=== PATIENT | male | born 1940 | race Caucasian/White ===

== ENCOUNTER 2016-12-13 02:19 | Inpatient (IN) | payer OTHER, MEDICARE ==
[~2016-12-13] VITALS: Ht 175.3 cm; Wt 81.6 kg
[~2016-12-13 02:19] MED LIST: ALBUTEROL2.5 MG/3 M INH/SOL; ALLOPURINOL100 MG PO; ATORVASTATIN CA40 MG PO; CARVEDILOL3.125 MG PO; CITALOPRAM20 MG PO; COLACE100 MG PO; COUMADIN 2 MG TA2 MG PO; MELATONIN5 M7 PO; MIRALAX17 GM PO; PREDNISONE 20MG20 MG PO; PRINIVIL 5MG5 MG PO; ROBITUSSIN W/CO10 ML PO; TESSALON PERLE100 MG PO
--- NOTE | 2016-12-13 02:26 | ED DYSPNEA/ASTHMA COMPLAINT ---
History of Present Illness General Chief Complaint: Dyspnea (COPD, CHF, Other) Stated Complaint: DIFF BREATHING Source: patient, family, old records, EMS Exam Limitations: no limitations Vital Signs & Intake/Output Vital Signs & Intake/Output Vital Signs Date Time Temp Pulse Resp B/P B/P Pulse O2 O2 Flow FiO2 Mean Ox Delivery Rate 12/13 0248 Nasal 2.0L Cannula 12/13 0236 91 Nasal 2.0L Cannula 12/13 0231 95.7 70 16 169/84 91 Nasal 2.0L Cannula Allergies Coded Allergies: NO KNOWN ALLERGIES (06/28/14) NKDA PER ANTIBIOTIC ORDER SHEET - SJS Reconcile Medications Albuterol Sulfate (Proventil) 2.5 MG/3 ML NEB 3 ML INH Q4P PRN SHORTNESS OF BREATH (Reported) Allopurinol 100 MG TAB 2 TAB PO DAILY KINDEY STONES (Reported) Atorvastatin Calcium (Lipitor) 40 MG TABLET 1 TAB PO DAILY CHOLESTEROL ( Reported) Docusate Sodium (Colace) 100 MG CAPSULE 1 CAP PO BID CONSTIPATION (Reported) Lisinopril 2.5 MG TABLET 1 TAB PO DAILY HTN (Reported) Melatonin 5 MG TABLET 1 TAB PO QPM SLEEP (Reported) Metoprolol Succinate 25 MG TAB 1 TAB PO DAILY HEART (Reported) Warfarin Sodium 4 MG TABLET 1 TAB PO DAILY BLOOD THINNER (Reported) Triage Nurses Notes Reviewed? yes HPI: Patient has had a runny nose and nasal congestion for the past 3 days. Yesterday he developed a productive cough. There've been no fevers or chills. No chest pain or chest tightness. No orthopnea. No nausea or vomiting. His has been giving him a nebulizer. Tonight he began to have difficulty breathing. 911 was contacted. Patient is currently feeling better and more relaxed. He still has the productive cough but he denies any difficulty breathing. There is no orthopnea. 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 Past History Travel History Traveled to [place] past 21 day No Medical History Any Pertinent Medical History? 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 Hx Contributory? No Review of Systems Review of Systems Constitutional: Reports: no symptoms. EENTM: Reports: no symptoms. Respiratory: Reports: see HPI, cough, short of breath. Cardiovascular: Reports: no symptoms. GI: Reports: no symptoms. Genitourinary: Reports: no symptoms. Musculoskeletal: Reports: no symptoms. Skin: Reports: no symptoms. Neurological/Psychological: Reports: no symptoms. Hematologic/Endocrine: Reports: no symptoms. Immunologic/Allergic: Reports: no symptoms. All Other Systems: Reviewed and Negative Physical Exam Physical Exam General Appearance: well developed/nourished, alert, awake, anxious, mild distress Head: atraumatic, normal appearance Eyes: Bilateral: PERRL, EOMI. Ears, Nose, Throat: normal pharynx, normal ENT inspection, hearing grossly normal Neck: normal inspection, supple, full range of motion, NO JVD Respiratory: rhonchi (SCATTERED), GOOD AIR ENTRY Cardiovascular: regular rate/rhythm, normal peripheral pulses Gastrointestinal: normal bowel sounds, soft, non-tender Extremities: pedal edema (L>R) Neurologic/Psych: awake, alert, oriented x 3 Skin: intact, normal color, warm/dry Lymphatic: no anterior cervical catarina Core Measures ACS in differential dx? No Severe Sepsis Present: No Septic Shock Present: No Progress Differential Diagnosis: bronchitis, CHF, COPD, pulmonary embolism, pneumonia Plan of Care: Orders Procedure Date/time Status Admit to inpatient 12/13 0426 Active PARTIAL THROMBOPLASTIN TIME 12/13 0233 Complete PROTHROMBIN TIME 12/13 0233 Complete Telemetry/Wood Shingle Roofer 12/13 224 Active BLOOD CULTURE 12/13 224 Active TROPONIN LEVEL 12/13 224 Complete COMPREHENSIVE METABOLIC PANEL 12/13 224 Complete CBC WITHOUT DIFFERENTIAL 12/13 224 Complete EKG 12/13 224 Active Current Medications Sig/Rao Start time Last Medication Dose Stop Time Status Admin Azithromycin 500 MG ONCE ONE 12/13 429 UNVr (Zithromax) 12/13 528 Sodium Chloride 250 ML (Normal Saline 0.9%) Ceftriaxone Sodium 1,000 MG ONCE ONE 12/13 429 UNVr (Rocephin) 12/13 430 Laboratory Tests 12/13/16239: Anion Gap 12, Estimated GFR 59 L, BUN/Creatinine Ratio 17.5, Glucose 129 H, Calcium 9.4, Total Bilirubin 2.1 H, AST 26, ALT 20 L, Alkaline Phosphatase 61, Troponin I < 0.01, Total Protein 7.8, Albumin 4.3, Globulin 3.5, Albumin/ Globulin Ratio 1.2, PT 31.7 H, INR 3.05 H, APTT 41 H, CBC w Diff MAN DIFF ORDERED, RBC 4.68 L, MCV 94.4 H, MCH 30.3, RDW 17.0 H, MPV 10.5 H, Gran % 84.4 H, Lymphocytes % 7.6 L, Monocytes % 5.6, Eosinophils % 1.8, Basophils % 0.6, Absolute Granulocytes 14.6 H, Segmented Neutrophils 85 H, Band Neutrophils 1, Absolute Lymphocytes 1.3, Lymphocytes 9 L, Monocytes 5, Absolute Monocytes 1.0 H, Absolute Eosinophils 0.3, Absolute Basophils 0.1, Platelet Estimate ADEQUATE, Hypochromic-Microcytic 1+, Poikilocytosis 1+, Target Cells RARE, Ovalocytes 1+, Stomatocytes FEW, PUBS MCHC 32.0 L, Fld Total RBCs Counted 100 Microbiology 12/13 249 BLOOD: Blood Culture - RECD 12/14 239 BLOOD: Blood Culture - RECD Diagnostic Imaging: Viewed by Me: Radiology Read. Discussed w/RAD: Radiology Read. CXR Impression: PATIENT: JEANNETTE SANABRIA PRESENT AGE: 76 PATIENT ACCOUNT NO: [id number] : [id number] LOCATION: [facility] ORDERING PHYSICIAN: TIKI RUIZ MD SERVICE DATE: 12/13/16 EXAM TYPE: RAD - XRY-PORTABLE CHEST XRAY EXAMINATION: XR PORTABLE CHEST CLINICAL INFORMATION: Productive cough COMPARISON: 05/20/2016 TECHNIQUE: Portable frontal view of the chest was obtained. FINDINGS: Pacemaker/AICD lead tips appear in unchanged position. Sternal wires and prosthetic mitral valve are noted. Lung volumes are symmetric. Patchy left basilar opacity is suspected. No definite right lung consolidation. No evidence of pneumothorax, significant pleural effusion, or overt pulmonary edema. The cardiac silhouette remains enlarged. No acute osseous findings are seen. IMPRESSION: Suspect patchy left basilar opacity ; this may be better assessed with PA and lateral radiographs. Enlarged cardiac silhouette. DICTATED BY: HUONG CHAPIN MD DATE/TIME DICTATED:12/13/16343 HAUNTED HISTORY TOUR GUIDE:MARIIA DATE/TIME TRANSCRIBED:12/13/16343 CONFIDENTIAL, DO NOT COPY WITHOUT APPROPRIATE AUTHORIZATION. <Electronically signed in Other Vendor System> SIGNED BY: HUONG CHAPIN MD 12/13/16348 Initial ED EKG: pacemaker rhythm Prior EKG: unchanged Rhythm Strip: PACED Departure Departure Disposition: STILL A PATIENT Condition: Guarded Clinical Impression Primary Impression: Pneumonia Qualifiers: Pneumonia type: due to unspecified organism Laterality: left Lung location: lower lobe of lung Qualified Code: J18.1 - Lobar pneumonia, unspecified organism Referrals: KLEVER CHESTER,TIKI Dorsey (PCP/Family) Departure Forms: Customer Survey General Discharge Information Admission Note Spoke With: NATALIE HAMPTON MD Documentation of Exam: Documentation of any treatments & extenuating circumstances including Concerns Regarding Discharge (functional status, medication knowledge or non-compliance, living conditions, etc.) that warrant an admission rather than observation: [IV ABX, NEBS, PULM CONSULT, ANTICIPATE BEING IN HOSPITAL FOR MORE THAN 2 DAYS] Critical Care Note Critical Care Note Critical Care Time: non-applicable
--- NOTE | 2016-12-13 02:35 | NUR ---
EKG DONE AND SHOWN TO DR. RUIZ.
--- NOTE | 2016-12-13 02:36 | NUR ---
PT BIBA FROM HOME C/O SOB. PT ARRIVES WITH SOB, NO ACUTE DISTRESS NOTED, PTS 02 ON RA 89%. PT PLACED ON 2L NC 02 91%. PT HAS LEFT SIDED PARALYSIS FROM STROKE IN 2010. PT HAS PACER ON LEFT SIDED CHEST WALL. PT ON ARRIVAL HAS A PRODTUCTIE COUGH WITH YELLOW COLORED FLEM AND SOME VOMITT. PT IS INCONTINENT. AT BEDSIDE. DR RUIZ AT BEDSIDE FOR EVAL
--- NOTE | 2016-12-13 02:36 | NUR ---
PT HAS PREHOSPITAL IV PLACED #20 RH.
[2016-12-13] MEDS ORDERED: METOPROLOL SUCC25 M1 PO (02:42)
[2016-12-13] MEDS ORDERED: LISINOPRIL2.5 M1 PO (02:42)
[2016-12-13] MEDS ORDERED: WARFARIN SODIUM4 M1 PO (02:44)
[2016-12-13] MEDS ORDERED: COLACE100 M1 PO (02:46)
--- NOTE | 2016-12-13 02:46 | NUR ---
RT AT BEDSIDE FOR TREATMENT, BEDSIDE XRAY
[2016-12-13 03:03] LABS: ABSOLUTE BASOPHIL COUNT 0.1 /CUMM (0.0-0.2); ABSOLUTE EOSINOPHIL COUNT 0.3 /CUMM (0.0-0.7); ABSOLUTE GRANULOCYTE CT 14.6 /CUMM (1.4-6.5); ABSOLUTE LYMPH COUNT 1.3 /CUMM (1.2-3.4); BASOPHIL % 0.6 % (0.0-2.0); EOSINOPHIL % 1.8 % (0-5); GRANULOCYTE % 84.4 % (42.2-75.2); HEMATOCRIT 44.2 % (42-52); MEAN CORPUSCULAR HGB 30.3 PG (27.0-31.0); MEAN CORPUSCULAR VOLUME 94.4 FL (80.0-94.0); MEAN PLATELET VOLUME 10.5 FL (7.4-10.4); PLATELET COUNT 113 /CUMM (130-400); RED BLOOD CELL CT 4.68 /CUMM (4.70-6.10); WHITE BLOOD CELL COUNT 17.2 /CUMM (4.8-10.8)
[2016-12-13 03:11] LABS: PT 31.7 SEC (9.4-12.5); PTT 41 SEC (25-37)
--- NOTE | 2016-12-13 03:49 | RADIOLOGY REPORT ---
EXAMINATION: XR PORTABLE CHEST CLINICAL INFORMATION: Productive cough COMPARISON: 05/20/2016 TECHNIQUE: Portable frontal view of the chest was obtained. FINDINGS: Pacemaker/AICD lead tips appear in unchanged position. Sternal wires and prosthetic mitral valve are noted. Lung volumes are symmetric. Patchy left basilar opacity is suspected. No definite right lung consolidation. No evidence of pneumothorax, significant pleural effusion, or overt pulmonary edema. The cardiac silhouette remains enlarged. No acute osseous findings are seen. IMPRESSION: Suspect patchy left basilar opacity; this may be better assessed with PA and lateral radiographs. Enlarged cardiac silhouette.
--- NOTE | 2016-12-13 04:48 | History & Physical ---
SELENA CHESTER,[facility] 12/13/16 0448: General Information and HPI MD Statement: I have seen and personally examined JEANNETTE SANABRIA SR and documented this H& P. The patient is a 76 year old M who presented with a patient stated chief complaint of [productive cough, shortness of breath]. Source of Information: patient, family, old records Exam Limitations: no limitations History of Present Illness: Mr. Sanabria is 76 year old male with past medical history significant for stroke with left-sided hemiplegia in 2010 status post craniotomy and cranioplasty, gout, hypertension, atrial fibrillation on Coumadin and pacemaker, rheumatic heart disease with mitral stenosis status post mitral valvuloplasty 1989, status post CABG, status post pace maker presented to ED with chief complain of productive cough and shortness of breath. Most of the history was obtained from patient's , she reported that 2 days ago patient started to have productive cough of clear sputum, denied blood. Yesterday patient started to have nasal congestion, and later shortness of breath. Patient doesn't have history of COPD/asthma however he has been getting albuterol twice a day daily that was prescribed to him after one of his hospitalization. Patient denied any fever, chills, chest pain, headache, sore throat, ear pain, abdominal pain, nausea or vomiting. Patient is not on any specific diet, no clear history of choking. After the stroke patient had trouble swallowing and was on modified diet that progressively was upgraded to be on regular diet. 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 Psychosocial History Who Do You Live With? spouse Services at Home: Occupational Therapy, Physical Therapy Primary Language: Martiniquais ETOH Use: denies use Illicit Drug Use: denies illicit drug use Functional Ability ADLs Needs Assist: dressing, eating, toileting, bathing. Ambulation: non-ambulatory IADLs Independent: telephone. Needs Assist: transportation, medication admin. Review of Systems Review of Systems Constitutional: Reports: see HPI. Exam & Diagnostic Data Last 24 Hrs of Vital Signs/I&O Vital Signs Date Time Temp Pulse Resp B/P B/P Pulse O2 O2 Flow FiO2 Mean Ox Delivery Rate 12/13 0601 Nasal 2.0L Cannula 12/13 0522 98.4 70 20 127/64 97 Nasal 2.0L Cannula 12/13 0248 Nasal 2.0L Cannula 12/13 0236 91 Nasal 2.0L Cannula 12/13 0231 95.7 70 16 169/84 91 Nasal 2.0L Cannula Intake & Output 12/13 0800 12/13 0000 12/12 1600 Intake Total 50 Output Total Balance 50 Intake, IV 50 Patient 81.647 kg Weight Weight Reported by Patient Measurement Method Physical Exam General Appearance Alert, Oriented X3, Cooperative, No Acute Distress Skin No Rashes, No Breakdown, No Significant Lesion Skin Temp/Moisture Exam: Warm/Dry HEENT Atraumatic, PERRLA, EOMI, Mucous Membr. moist/pink Neck Supple Lymphatic no cervical lymphadenopathy Cardiovascular Normal S1, Normal S2, No Murmurs, irregular Lungs Diffuse ronchi Abdomen Normal Bowel Sounds, Soft, No Tenderness, No Hepatospenomegaly, No Masses Neurological left hemiplagia right 5/5 motor, sensory intact Extremities No Clubbing, No Cyanosis, Normal Pulses, No Tenderness/Swelling, left +1 pedal edema right trace pedal edema Assessment/Plan Assessment: Mr. Sanabria is 76 year old male with past medical history significant for stroke with left-sided hemiplegia in 2010 status post craniotomy and cranioplasty, gout, hypertension, atrial fibrillation on Coumadin and pacemaker, rheumatic heart disease with mitral stenosis status post mitral valvuloplasty 1989, status post CABG, status post pace maker presented to ED with chief complain of productive cough and shortness of breath. On admission Vital signs temperature 95.7, pulse 70, blood pressure 169/84, respiratory rate 16 saturating 91% on 2 L oxygen, saturating 89% on room air Labs WBC 17.2, H&H 14.2/44.2, platelet 113, sodium 137, potassium 4.3, BUN/ creatinine 21/1.2, glucose 129, INR 3.05 Chest x-ray IMPRESSION: Suspect patchy left basilar opacity; this may be better assessed with PA and lateral radiographs. Enlarged cardiac silhouette. Problem list #Community acquired pneumonia/aspiration pneumonia #Acute hypoxic respiratory failure #Atrial fibrillation on Coumadin supratherapeutic INR #Gout Plan -Admit to general medical floor -Azithromycin, ceftriaxone -Sputum culture, urine culture and blood culture -Oxygen supplementation, maintain saturation above 92% -TRC -Gentle IV hydration -Nothing by mouth follow evaluation -Hold Coumadin for subtherapeutic INR -Repeat INR in a.m. and dose Coumadin accordingly -Continue lisinopril, atorvastatin -Continue allopurinol -Diet nothing by mouth -Code DNI As Ranked By This Provider Problem List: 1. Pneumonia Qualifiers Pneumonia type: due to unspecified organism Laterality: left Lung location: lower lobe of lung Qualified Code: J18.1 - Lobar pneumonia, unspecified organism 2. Atrial fibrillation Core Measures/Miscellaneous Acute Coronary Syndrome ACS Diagnosis: No Cerebrovascular Accident CVA/TIA Diagnosis: No Congestive Heart Failure CHF Diagnosis: No VTE (View Protocol) VTE Risk Factors: Age > 40 No [facility] VTE prophylaxis d/t: No contraindications No VTE Pharm Prophylaxis d/t: No contraindications VTE Diagnosis: No VTE Type: NONE VTE Confirmed by (Test): NONE Sepsis (View Protocol) Severe Sepsis Present: No Septic Shock Septic Shock Present: No Miscellaneous Documentation Attending Case Discussed With: NATALIE HAMPTON MD Primary Care Physician: TIKI ERNST MD Patient sees these Specialists Cardiology Level of Patient Care: General Medicine SUSANA YU MD 12/13/16 3245: General Information and HPI Allergies/Medications Home Med list Albuterol Sulfate (Proventil) 2.5 MG/3 ML NEB 3 ML INH Q4P PRN SHORTNESS OF BREATH (Reported) Allopurinol 100 MG TABLET 2 TAB PO DAILY kidney stones Atorvastatin Calcium 40 MG TABLET 1 TAB PO DAILY cholesterol Docusate Sodium (Colace) 100 MG CAPSULE 1 CAP PO BID CONSTIPATION (Reported) Lisinopril 2.5 MG TABLET 1 TAB PO DAILY HTN (Reported) Melatonin 5 MG TABLET 1 TAB PO QPM SLEEP (Reported) Metoprolol Tartrate 25 MG TABLET 1 TAB PO BID heart rate Tramadol HCl 50 MG TABLET 1 TAB PO Q6P PRN PAIN SCALE 7-10 (SEVERE) (Reported ) Warfarin Sodium 4 MG TABLET 1 TAB PO DAILY BLOOD THINNER (Reported) Resident Review Statement Resident Statement: examined this patient, discussed with internet programmer, agreed with internet programmer Other Findings: 76 year old male with past medical history significant for stroke with left- sided hemiplegia in 2011 status post craniotomy and then cranioplasty, gout, hypertension, A. fib on coumadin, bovine mitral valve replacement, status post CABG, status post pace maker with IVC in situ presents with 1 day history of progressive shortness of breath and productive cough. Patient's provides most of the history. She reports that the cough is productive of whitish sputum, not blood tinged. No hx of choking on foods. Pt was congested all night with shortness of breath but oxygen saturation checked at home was 97% on RA. Patient denies chest pain, fever or chills, N/V or D. There is no sick contact or recent travel. His gave him robitussin DM and neb treatments without improvements. Patient is a former smoker but quit many years ago but denies a pulmonary disease history and says patient has never been diagnosed with any chronic lung condition. He does not use O2 at home. He has visiting nurses and aides, and he is an assist of 2 at baseline and ambulates only with a wheelchair. In the ER he was found to desaturate to 87 on RA and is currently on 2L. CXR-Suspect patchy left basilar opacity; this may be better assessed with PA and lateral radiographs. Enlarged cardiac silhouette. Assessment 1. Acute Hypoxic Respiratory failure 2. Community Acquired PNA r/o possible aspiration pneumonia 3. Atrial Fibrillation 4. HTN 5. Hx of Stroke with left sided hemiplegia Plan Admit to GM Start IV ceftriaxone and azithromycin Give supplemental O2 as needed TRC/Nebs Obtain Blood Cultures x 2 Sputum Culture Strep pneumo and Legionella Ag Mucinex BID Check a swallow Eval Repeat labs in AM Daily INR check and dose coumadin as needed Resume his impt home medications Keep NPO for now Pain mgt pathway ordered Pt is DNI Warfarin for DVT ppx-INR is supratherapeutic BERTA CHESTER, [facility] 12/13/16 0537: Attending MD Review Statement Attending Statement Attending MD Statement: examined this patient, discuss w/resident/PA/PATHOLOGIST ASSISTANT, agreed w/resident/PA/PATHOLOGIST ASSISTANT, discussed with family Attending Assessment/Plan: 76 yo M with h/o stroke with residual left hemiplegia (2010) s/p craniotomy and then cranioplasty, HTN, rheumatic mitral stenosis s/p mitral valvuloplasty (1989 ) then bioprosthetic valve replacement and 1-vessel bypass (2004), Afib s/p AV braydon ablation and PPM (1993), systolic CHF now with biventricular AICD (2008), is here with 3-day h/o rhinorrhea, nasal congestion, cough productive of white phlegm with worsening dyspnea. No fever or chills. No sick contacts. His reports that he has no difficulty swallowing or aspiration with meals. Vitals: afebrile, BP 127/64, HR 70's, sats 89% RA --> 97% on 2L. Exam: AAO, in mild respiratory distress, dry mucous membranes, no pharyngeal erythema, able to speak a few words without difficulty, Chest b/l rhonchi (L>R), Left sided hemiparesis with contracture to left foot. Labs: WBC 17.2, band 1, INR 3.05, BUN 21, trop neg, CXR: patchy left basilar opacity. EKG: Paced. Echo (2016): EF 50% . 1. Acute hypoxic respiratory failure, community acquired pneumonia, although aspiration pneumonia/ pneumonitis cannot be ruled out. GM admit, TRC nebs, sputum culture, urine legionella and strep antigen, IV ceftriaxone and azithromycin, NPO, obtain swallow eval. Gentle IV fluids. Keep O2 sats > 92%. Mucinex BID. 2. Supratherapeutic INR. Hold coumadin today, recheck INR tomorrow and dose coumadin. Continue all cardiac meds. DVT ppx supratherapeutic INR on coumadin. DNI (patient has a living will, is the POA).
--- NOTE | 2016-12-13 04:55 | NUR ---
PT IS GOING TO 210-2
--- NOTE | 2016-12-13 04:57 | NUR ---
PT MEDICATED WITH 1G ROCPEHIN IV AND 500MG ZITHRO IV PER EMAR.
--- NOTE | 2016-12-13 05:03 | NUR ---
REPORT GIVEN TO RONN REEVES.
--- NOTE | 2016-12-13 05:20 | Admission Certification ---
Admission Certification Certification Statement - As attending physician, I certify that at the time of - admission, based on clinical presentation, severity of - symptoms, need for further diagnostic testing and - therapeutic interventions, and risk of adverse outcomes - without in-hospital treatment, in my clinical assessment, - this patient requires an acute hospital stay for a minimum - of two nights or longer. I have also considered psychsocial - factors such as support system, advanced age, financial - issues, cognitive issues, and failed out-patient treatments, - past re-admission history, safety of patient, and lack of - compliance as applicable. Specific rationale supporting this admission is: Acute hypoxic respiratory failure, community acquired pneumonia.
[2016-12-13] MEDS ORDERED: ATORVASTATIN CA40 M1 PO (05:34)
[2016-12-13] MEDS ORDERED: ALLOPURINOL100 M1 PO ×2 (05:34→06:20)
[2016-12-13] MEDS ORDERED: METOPROLOL TART25 M1 PO (05:37)
[2016-12-13] MEDS ORDERED: TRAMADOL HCL50 M1 PO (05:38)
--- NOTE | 2016-12-13 06:23 | NUR ---
ADMISSION NOTE: PT ARRIVED TO FLOOR VIA STRETCHER ACCOMPANIED BY ER STAFF AND . PT A&0X3, 2L NC, PRODUCTIVE COUGH NOTED, LUNGS RHONCUS, DENIED PAIN, HX STROKE 2010 LEFT SIDE EFFECTED, PT INC, GONZALO CARE PROVIDED, PT COCCYX RED/BLANCHABLE- BARRIER CREAM APPLIED, BED ALARM ON, ALPS ON, TWO IVS- FIRST IV #20 RFA PRE-HOSPITAL, SECOND IV #20 RFA 12/13/16 STARTED IN ER, IVF STARTED NS 50ML/HR, CALL LIGHT PLACED WITHIN REACH, PT ORIENTATED TO ROOM 210-2, FALL RISK BRACLET ON, RED SOCKS ON , SIGN ON DOOR. PT SETTLED IN AND RESTING AT THIS TIME.
[2016-12-13 06:30] VITALS: BP 124/65
--- NOTE | 2016-12-13 09:18 | PN- Housestaff ---
LEON FISHER 12/13/16 0917: Subjective Follow-up For: Pneumonia most likely aspiration Supratherapeutic INR Subjective: This morning patient is alert and awake but slightly confused. He is on 2 L of oxygen via nasal cannula. He denies any cough, chest pain or breathing difficulty. He denies difficulty swallowing or choking with food. Review of Systems Constitutional: Reports: see HPI. Objective Last 24 Hrs of Vital Signs/I&O Vital Signs Date Time Temp Pulse Resp B/P B/P Pulse O2 O2 Flow FiO2 Mean Ox Delivery Rate 12/13 1020 Nasal Cannula 12/13 0927 96 Nasal 2.0L Cannula 12/13 0800 96 Nasal 2.0L Cannula 12/13 0630 99.6 70 20 124/65 97 Nasal 2.0L Cannula 12/13 0601 Nasal 2.0L Cannula 12/13 0522 98.4 70 20 127/64 97 Nasal 2.0L Cannula 12/13 0248 Nasal 2.0L Cannula 12/13 0236 91 Nasal 2.0L Cannula 12/13 0231 95.7 70 16 169/84 91 Nasal 2.0L Cannula Intake & Output 12/13 1600 12/13 0800 12/13 0000 Intake Total 50 Output Total Balance 50 Intake, IV 50 Patient 180 lb Weight Weight Reported by Patient Measurement Method Physical Exam General Appearance: Alert, No Acute Distress Neck: Supple Cardiovascular: Regular Rate, systolic murmur Lungs: decreased air entry bilaterally Abdomen: Normal Bowel Sounds, Soft, No Tenderness Neurological: residual left-sided weakness Extremities: No Edema Current Medications: Current Medications Sig/Rao Start time Last Medication Dose Route Stop Time Status Admin Acetaminophen 650 MG Q6-PRN PRN 12/13 0600 AC PO Albuterol Sulfate 3 ML BID 12/13 1000 AC 12/13 INH 0921 Albuterol Sulfate 3 ML ONCE ONE 12/13 0245 DC 12/13 INH 12/13 0246 0234 Allopurinol 200 MG DAILY 12/13 1000 AC PO Allopurinol 200 MG DAILY 12/13 1000 CAN PO Atorvastatin Calcium 40 MG 1700 12/13 1700 AC PO Azithromycin 500 MG Q24H 12/14 1000 AC Sodium Chloride 250 ML IV Azithromycin 500 MG ONCE ONE 12/13 0430 DC 12/13 Sodium Chloride 250 ML IV 12/13 0529 0502 Azithromycin 500 MG Q24H 12/13 0430 DC Sodium Chloride 250 ML IV Ceftriaxone Sodium 1,000 MG DAILY 12/14 1000 AC IV Ceftriaxone Sodium 0 .STK-MED ONE 12/13 0445 DC .ROUTE Ceftriaxone Sodium 1,000 MG ONCE ONE 12/13 0430 DC 12/13 IV 12/13 0431 0502 Guaifenesin 600 MG Q12 12/13 1000 AC PO Hydromorphone HCl 0.6 MG Q6-PRN PRN 12/13 0600 AC IV Lisinopril 2.5 MG DAILY 12/13 1000 AC PO Melatonin 5 MG QPM 12/13 2200 AC PO Sodium Chloride 1,000 ML .Q20H 12/13 0430 AC 12/13 IV 06 Tramadol HCl 50 MG Q6P PRN 12/13 0600 AC PO Last 24 Hrs of Lab/Derek Results Last 24 Hrs of Labs/Mics: Laboratory Tests 12/13/16 0240: Anion Gap 12, Estimated GFR 59 L, BUN/Creatinine Ratio 17.5, Glucose 129 H, Calcium 9.4, Total Bilirubin 2.1 H, AST 26, ALT 20 L, Alkaline Phosphatase 61, Troponin I < 0.01, Total Protein 7.8, Albumin 4.3, Globulin 3.5, Albumin/ Globulin Ratio 1.2, PT 31.7 H, INR 3.05 H, APTT 41 H, CBC w Diff MAN DIFF ORDERED, RBC 4.68 L, MCV 94.4 H, MCH 30.3, RDW 17.0 H, MPV 10.5 H, Gran % 84.4 H, Lymphocytes % 7.6 L, Monocytes % 5.6, Eosinophils % 1.8, Basophils % 0.6, Absolute Granulocytes 14.6 H, Segmented Neutrophils 85 H, Band Neutrophils 1, Absolute Lymphocytes 1.3, Lymphocytes 9 L, Monocytes 5, Absolute Monocytes 1.0 H, Absolute Eosinophils 0.3, Absolute Basophils 0.1, Platelet Estimate ADEQUATE, Hypochromic-Microcytic 1+, Poikilocytosis 1+, Target Cells RARE, Ovalocytes 1+, Stomatocytes FEW, PUBS MCHC 32.0 L, Fld Total RBCs Counted 100 Microbiology 12/14 527 URINE ROUT: Legionella Antigen - COLB 12/14 527 URINE ROUT: Streptococcus pneumoniae Antigen (M - COLB 12/14 527 LOWER RESP: Respiratory Culture - COLB 12/14 527 LOWER RESP: Gram Stain - COLB 12/13 0250 BLOOD: Blood Culture - RECD 12/13 0240 BLOOD: Blood Culture - RECD Assessment/Plan Assessment: 76 year old Man with PMH of stroke with residual left hemiplegia (2010) s/p craniotomy and then cranioplasty, HTN, rheumatic mitral stenosis s/p mitral valvuloplasty (1989) then bioprosthetic valve replacement and 1-vessel bypass ( 2004), Afib s/p AV braydon ablation and PPM (1993), systolic CHF now with biventricular AICD (2008). Problem list 1. Acute hypoxic respiratory failure most likely secondary to aspiration pneumonia. Patient is afebrile. Her WBC count is 17.2. Patient is on 2 L of oxygen via nasal cannula. Chest x-ray showing patchy left basilar opacity. 2. Supratherapeutic INR. INR this morning is 3.05 3. Failed bedside swallow evaluation. MBS orderd PLAN * Monitor vitals every shift * Continue IV ceftriaxone and azithromycin * Follow-up blood and sputum cultures * Followed urinary Legionella antigen and strep edema * Continue Mucinex * Continue TRC nebs * Continue gentle IV fluids * Continue holding Coumadin. Check INR tomorrow morning and dose Coumadin accordingly * Patient also failed modified MBS * Swallow evaluation again tomorrow * Family discussion about goals of care * DVT prophylaxis * DNI Problem List: 1. Pneumonia Pain Ratin Pain Location: none Pain Goal: Pain 4 or less Pain Plan: tylenol Tomorrow's Labs & Rationales: cbc, inr DVT/Prophylaxis: pharmacological ASHLEY FLORES 12/13/16 1005: Attending MD Review Statement Attending Statement Attending MD Statement: examined this patient, discuss w/resident/PA/CIVIL DESIGNER, agreed w/resident/PA/CIVIL DESIGNER, discussed with family, reviewed EMR data (avail), discussed with nursing, discussed with case mgmt, reviewed images, amended to note Attending Assessment/Plan: "76 yo M with h/o stroke with residual left hemiplegia (2010) s/p craniotomy and then cranioplasty, HTN, rheumatic mitral stenosis s/p mitral valvuloplasty (1989 ) then bioprosthetic valve replacement and 1-vessel bypass (2004), Afib s/p AV braydon ablation and PPM (1993), systolic CHF now with biventricular AICD (2008), is here with 3-day h/o rhinorrhea, nasal congestion, cough productive of white phlegm with worsening dyspnea. No fever or chills. No sick contacts. His reports that he has no difficulty swallowing or aspiration with meals. " ASSESSMENT 1. Acute hypoxic respiratory failure, 2. community acquired pneumonia, although aspiration pneumonia/ pneumonitis cannot be ruled out. 2. Supratherapeutic INR. PLAN GM admit, TRC nebs, f/u blood culture, sputum culture, F/U urine legionella and strep antigen, IV ceftriaxone and azithromycin, NPO, obtain swallow eval. Gentle IV fluids. Keep O2 sats > 92%. Mucinex BID. Hold coumadin, recheck INR tomorrow and dose coumadin. Continue all cardiac meds. DVT ppx supratherapeutic INR on coumadin. DNI (patient has a living will, is the POA).
[2016-12-13 14:14] VITALS: BP 110/59
--- NOTE | 2016-12-13 14:47 | NUR ---
NURSING NOTE: AIR MATTRESS ORDERED FOR PATIENT BUT HIS REFUSED IT. MICROBIOLOGY TECHNICIAN IS NOTIFIED.
--- NOTE | 2016-12-13 16:01 | RADIOLOGY REPORT ---
EXAMINATION: XR MODIFIED BARIUM SWALLOW CLINICAL INFORMATION: Aspiration. Patient admitted with pneumonia. COMPARISON: None. TECHNIQUE: A modified barium swallow was performed with speech pathologist in attendance. Pur?e consistency was given to the patient and the swallowing mechanism was observed fluoroscopically with several spot films taken. FLUOROSCOPY TIME: 1 minute 10 seconds. FINDINGS: With puree consistency, the oral phase of swallowing is normal. There is, however, significant pooling of contrast seen within the vallecula, which lead to delayed silent penetration of contrast. No significant pooling of contrast is noted in the piriform sinuses. IMPRESSION: Large volume pooling of contrast within the vallecula with secondary delayed silent penetration seen. Speech pathologist assessment issued separately.
--- NOTE | 2016-12-13 17:43 | Event Note ---
Event Note Event Note: S: Called by nurse who said the of the patient was concerned about evening medications. B: Patient normally takes Warfarin (4mg daily) and metoprolol 25 mg BID. A/R: Based on the supratherapeutic INR 3.05 explained that we will hold off on the warfarin this evening. Blood pressure was 110/59 heart rate is well controlled on beta ema was held. Patient's is eager for diet to be advanced and looks forward to clearance after MBS in a.m. Resident was made aware. INR will be checked in the morning.
[2016-12-13 22:38] VITALS: BP 141/94
[2016-12-14 07:07] VITALS: BP 120/62
[2016-12-14 07:47] LABS: ABSOLUTE BASOPHIL COUNT 0 /CUMM (0.0-0.2); ABSOLUTE EOSINOPHIL COUNT 0.3 /CUMM (0.0-0.7); ABSOLUTE GRANULOCYTE CT 4.3 /CUMM (1.4-6.5); ABSOLUTE MONOCYTE COUNT 0.7 /CUMM (0.10-0.60); BASOPHIL % 0.6 % (0.0-2.0); EOSINOPHIL % 4.2 % (0-5); MEAN CORPUSCULAR HGB 30.4 PG (27.0-31.0); MEAN CORPUSCULAR HGB CONC 32.8 G/DL (33.0-37.0); MEAN CORPUSCULAR VOLUME 92.7 FL (80.0-94.0); MEAN PLATELET VOLUME 11.2 FL (7.4-10.4); PLATELET COUNT 92 /CUMM (130-400); RBC DISTRIBUTION WIDTH 17.6 % (11.5-14.5); RED BLOOD CELL CT 4.02 /CUMM (4.70-6.10)
[2016-12-14 08:18] LABS: PT 30.8 SEC (9.4-12.5); PTT 41 SEC (25-37)
[2016-12-14 08:23] LABS: WHITE BLOOD CELL COUNT 6.3 /CUMM (4.8-10.8)
[2016-12-14 08:24] LABS: HEMATOCRIT 37.2 % (42-52)
--- NOTE | 2016-12-14 10:07 | PN- Housestaff ---
LEON FISHER 12/14/16 1007: Subjective Follow-up For: Aspiration pneumonia Subjective: This morning patient is feeling little improvement. He is still coughing and bringing up greenish phlegm. Denies any chest pain or discomfort. Review of Systems Constitutional: Reports: see HPI. Objective Last 24 Hrs of Vital Signs/I&O Vital Signs Date Time Temp Pulse Resp B/P B/P Pulse O2 O2 Flow FiO2 Mean Ox Delivery Rate 12/14 1357 98.8 69 20 142/80 98 Nasal Cannula 12/14 0822 97 Nasal 1.0L Cannula 12/14 0800 94 Nasal 2.0L Cannula 12/14 0707 97.4 70 20 120/62 96 Nasal Cannula 12/14 0000 Nasal 2.0L Cannula 12/13 2238 98.1 70 20 141/94 97 Nasal 2.0L Cannula 12/13 2000 95 Nasal 2.0L Cannula Intake & Output 12/14 1600 12/14 0800 12/14 0000 Intake Total 600 600 Output Total Balance 600 600 Intake, IV 600 600 Physical Exam General Appearance: Alert, Oriented X3, Cooperative, No Acute Distress Cardiovascular: Regular Rate Lungs: decreased air entry bilaterally Abdomen: Normal Bowel Sounds, Soft, No Tenderness Neurological: residual left-sided weakness, left facial droop Extremities: trace edema bilaterally Current Medications: Current Medications Sig/Rao Start time Last Medication Dose Route Stop Time Status Admin Acetaminophen 650 MG Q6-PRN PRN 12/13 0600 AC PO Albuterol Sulfate 3 ML BID 12/13 1000 AC 12/14 INH 0809 Allopurinol 200 MG DAILY 12/13 1000 AC PO Atorvastatin Calcium 40 MG 1700 12/13 1700 AC PO Azithromycin 500 MG Q24H 12/14 1000 AC 12/14 Sodium Chloride 250 ML IV 0956 Ceftriaxone Sodium 1,000 MG DAILY 12/14 1000 AC 12/14 IV 0956 Dextrose/Sodium 1,000 ML Q13H 12/13 1530 AC 12/14 Chloride IV 0525 Guaifenesin 600 MG Q12 12/13 1000 AC PO Hydromorphone HCl 0.6 MG Q6-PRN PRN 12/13 0600 AC IV Lisinopril 2.5 MG DAILY 12/13 1000 AC PO Melatonin 5 MG QPM 12/13 2200 AC PO Metoprolol Tartrate 25 MG BID 12/14 1026 AC PO Sodium Chloride 1,000 ML .Q20H 12/13 0430 DC 12/13 IV 0622 Tramadol HCl 50 MG Q6P PRN 12/13 0600 AC PO Warfarin Sodium 4 MG COUMADIN 1700 ONE 12/14 1700 AC PO 12/14 1701 Last 24 Hrs of Lab/Derek Results Last 24 Hrs of Labs/Mics: Laboratory Tests 12/14/16 0650: Anion Gap 8, Estimated GFR > 60, BUN/Creatinine Ratio 19.1, PT 30.8 H, INR 2.97 H, APTT 41 H, CBC w Diff NO MAN DIFF REQ, RBC 4.02 L, MCV 92.7, MCH 30.4, RDW 17.6 H, MPV 11.2 H, Gran % 68.0, Lymphocytes % 16.2 L, Monocytes % 11.0 H, Eosinophils % 4.2, Basophils % 0.6, Absolute Granulocytes 4.3, Absolute Lymphocytes 1.0 L, Absolute Monocytes 0.7 H, Absolute Eosinophils 0.3, Absolute Basophils 0, PUBS MCHC 32.8 L Assessment/Plan Assessment: 76 year old Man with PMH of stroke with residual left hemiplegia (2010) s/p craniotomy and then cranioplasty, HTN, rheumatic mitral stenosis s/p mitral valvuloplasty (1989) then bioprosthetic valve replacement and 1-vessel bypass ( 2004), Afib s/p AV braydon ablation and PPM (1993), systolic CHF now with biventricular AICD (2008). Problem list 1. Acute hypoxic respiratory failure most likely secondary to aspiration pneumonia. Patient is afebrile. Her WBC count is 6.3. Patient is on 1 L of oxygen via nasal cannula. 2. Supratherapeutic INR on admission. INR this morning is 2.97 3. Failed bedside swallow evaluation and MBS. High risk of aspiration 4. Thrombocytopenia. Platelet count 92. No active bleeding PLAN * Monitor vitals every shift * Continue IV ceftriaxone and azithromycin * Continue Mucinex * Continue TRC nebs * Dose Coumadin [address] Mcdonald * Check INR tomorrow morning and dose Coumadin accordingly * Swallow evaluation again tomorrow * Family discussion about goals of care today. Speech therapist Dianne spoke with patient and his earlier this morning and told her about risk of aspiration. actually fed him applesauce last night even though patient was nothing by mouth. Me and Dr. Mcdonald also discussed with the but she is in denial and she is not much convinced because she thinks that patient has been eating perfectly fine at home. Later on she admitted that he might have some difficulty with thin liquids and chokes some time. She was given options for NG tube and PEG tube but patient and his both are refusing. Both completely understand the risk of starting diet and okay with that. They were told that continues aspiration can lead to recurrent pneumonia, multiple hospitalization and eventual . They understand the risks and want us to start the diet. wants to see him comfortable. Options of comfort care and hospice were also discussed with her but she is not ready for that. * Regular chopped diet with honey thick liquid * DVT prophylaxis * DNR/DNI Problem List: 1. Pneumonia Pain Ratin Pain Location: none Pain Goal: Pain 4 or less Pain Plan: tylenol Tomorrow's Labs & Rationales: none DVT/Prophylaxis: pharmacological ASHLEY MCDONALD 12/14/16 1025: Attending MD Review Statement Attending Statement Attending MD Statement: examined this patient, discuss w/resident/PA/HEAD BAGGAGE PORTER, agreed w/resident/PA/HEAD BAGGAGE PORTER, discussed with family, reviewed EMR data (avail), discussed with nursing, discussed with case mgmt, reviewed images, amended to note Attending Assessment/Plan: ASSESSMENT 1. Acute hypoxic respiratory failure, 2. aspiration pneumonia 2. Supratherapeutic INR. 4. Failed speech/swallow, MBS 5. h/o stroke 6. h/o afib on coumadin PLAN failed MBS, on abx, repeat chest xray in am, oxygen supplementation. restart coumadin, recheck INR tomorrow and dose coumadin. Continue all cardiac meds. If failed swallow eval, nutrition, goals of care with family. (discuss about PEG ) Patient and his spoke at length about future goals of care, patient/ both understands risks/benefits of PO feeds with aspiration leading to pneumonia and . Patient decided to continue with oral feeds as per speech/swallow. DVT ppx therapeutic INR on coumadin. DNI (patient has a living will, is the POA).
--- NOTE | 2016-12-14 13:03 | NUR ---
SPEECH THERAPY: CONTACTED AND MET TO DISCUSS RESULTS OF MBS COMPLETED 12/12. PT'S REPORTS THAT PT HAS NO DIFFICULTY SWALLOWING SOLIDS AT HOME, OCCASIONAL COUGHING WITH THIN LIQUIDS. SHE BELIEVES HE HAS A HEAD COLD AND DOES NOT BELIEVE THIS IS A CHRONIC PROBLEM. AT HOME, PT USES ACAPELLA IF CONGESTION INCREASES AND SHE REPORTS THIS "LOOSENS EVERYTHING UP AND HE COUGHS IT OUT." SHE IS CLEAR THAT PT DOES NOT WANT A FEEDING TUBE AND THAT PT "WOULD RATHER THAN HAVE A TUBE." DISCUSSED RISKS OF ASPIRATION AND ASPIRATION-RELATED INFECTION AT LENGTH WELL STRATEGIES TO MAXIMIZE SWALLOW SAFETY. REPORTS SHE INTENDS TO TAKE HIM HOME AND WILL CONTINUE TO FEED HIM. D/W RN AND T/C PLACED TO MD TO DISCUSS.
[2016-12-14 13:57] VITALS: BP 142/80
[2016-12-14 22:26] VITALS: BP 112/68
[2016-12-15 06:27] VITALS: BP 118/72
[2016-12-15 08:32] LABS: PT 25.2 SEC (9.4-12.5)
--- NOTE | 2016-12-15 10:03 | PN- Housestaff ---
LEON FISHER 12/15/16 1003: Subjective Follow-up For: Aspiration pneumonia Subjective: Patient is feeling improved. He denies any chest pain or discomfort. Cough is improved. He is on room air saturating well. Review of Systems Constitutional: Reports: see HPI. Objective Last 24 Hrs of Vital Signs/I&O Vital Signs Date Time Temp Pulse Resp B/P B/P Pulse O2 O2 Flow FiO2 Mean Ox Delivery Rate 12/15 0925 70 120/80 12/15 0803 94 Room Air Room Air 12/15 0627 99.2 70 20 118/72 93 Room Air 12/15 0000 Room Air 12/14 2226 99.4 73 20 112/68 91 Room Air 12/14 1900 96 Nasal 1.0L Cannula 12/14 1841 72 115/65 12/14 1833 72 115/65 12/14 1357 98.8 69 20 142/80 98 Nasal Cannula Intake & Output 12/15 1600 12/15 0800 12/15 0000 Intake Total Output Total Balance Number 1 Bowel Movements Physical Exam General Appearance: Alert, Oriented X3, Cooperative, No Acute Distress Cardiovascular: Regular Rate Lungs: decreased air entry bilaterally Abdomen: Normal Bowel Sounds, Soft, No Tenderness Neurological: residual left-sided weakness Extremities: swelling of left leg without any erythema or swelling Current Medications: Current Medications Sig/Rao Start time Last Medication Dose Route Stop Time Status Admin Acetaminophen 650 MG Q6-PRN PRN 12/13 06 AC PO Albuterol Sulfate 3 ML BID 12/13 1000 AC 12/15 INH 0801 Allopurinol 200 MG DAILY 12/13 1000 AC 12/15 PO 0924 Amoxicillin/ 875 MG Q12 12/15 1005 AC 12/15 Clavulanate Potassium PO 1143 Atorvastatin Calcium 40 MG 1700 12/13 1700 AC PO Azithromycin 500 MG Q24H 12/14 1000 DC 12/15 Sodium Chloride 250 ML IV 0925 Ceftriaxone Sodium 1,000 MG DAILY 12/14 1000 DC 12/15 IV 0925 Dextrose/Sodium 1,000 ML Q13H 12/13 1530 DC 12/14 Chloride IV 0525 Guaifenesin 600 MG Q12 12/13 1000 AC 12/15 PO 0925 Hydromorphone HCl 0.6 MG Q6-PRN PRN 12/13 0600 AC IV Lisinopril 2.5 MG DAILY 12/13 1000 AC 12/14 PO 1841 Melatonin 5 MG QPM 12/13 2200 AC 12/14 PO 2143 Metoprolol Tartrate 25 MG BID 12/14 1026 AC 12/15 PO 0925 Tramadol HCl 50 MG Q6P PRN 12/13 0600 AC PO Warfarin Sodium 4 MG COUMADIN 1700 ONE 12/14 1700 DC 12/14 PO 12/14 1701 1827 Last 24 Hrs of Lab/Derek Results Last 24 Hrs of Labs/Mics: Laboratory Tests 12/15/16 0706: PT 25.2 H, INR 2.42 H Assessment/Plan Assessment: 76 year old Man with PMH of stroke with residual left hemiplegia (2010) s/p craniotomy and then cranioplasty, HTN, rheumatic mitral stenosis s/p mitral valvuloplasty (1989) then bioprosthetic valve replacement and 1-vessel bypass ( 2004), Afib s/p AV braydon ablation and PPM (1993), systolic CHF now with biventricular AICD (2008). Problem list 1. Acute hypoxic respiratory failure most likely secondary to aspiration pneumonia. 2. Failed bedside swallow evaluation and MBS. High risk of aspiration. and patient aware of all the risks and still wanted to start diet 3. Patient on chopped honey thick diet. Follow-up chest x-ray did not show Any acute process or progression of previous left basilar opacity PLAN * Monitor vitals every shift * Discontinued IV ceftriaxone and azithromycin and switched him to by mouth Augmentin for a total of 7 days * Regular chopped diet with honey thick liquid * Discharge home today * DVT prophylaxis * DNR/DNI Problem List: 1. Pneumonia Pain Ratin Pain Location: none Pain Goal: Pain 4 or less Pain Plan: tylenol Tomorrow's Labs & Rationales: none DVT/Prophylaxis: pharmacological ASHLEY FLORES 12/15/16 1005: Attending MD Review Statement Attending Statement Attending MD Statement: examined this patient, discuss w/resident/PA/VALET CASHIER, agreed w/resident/PA/VALET CASHIER, discussed with family, reviewed EMR data (avail), discussed with nursing, discussed with case mgmt, reviewed images, amended to note Attending Assessment/Plan: ASSESSMENT 1. Acute hypoxic respiratory failure, 2. aspiration pneumonia 2. Supratherapeutic INR. 4. Failed speech/swallow, MBS 5. h/o stroke 6. h/o afib on coumadin PLAN failed MBS, on abx, oxygen supplementation. restarted coumadin, INR 2.42, Continue all cardiac meds. If failed swallow eval, nutrition, goals of care with family. (discuss about PEG ) Patient and his spoke at length about future goals of care, patient/ both understands risks/benefits of PO feeds with aspiration leading to pneumonia and . Patient decided to continue with oral feeds as per speech/swallow. Patient refusing hospice eval for now. wants to go home. DVT ppx therapeutic INR on coumadin. DNI (patient has a living will, is the POA).
[2016-12-15] MEDS ORDERED: AMOX-CLAV 875-1 EACH PO ×3 (10:10→12:58)
--- NOTE | 2016-12-15 10:11 | Patient Discharge Instructions ---
Discharge Instructions General Discharge Information You were seen/treated for: ASPIRATION PNEUMONIA Special Instructions: 1. FOLLOWUP PCP Diet Continue normal diet: Yes Activity Full Activity/No Limits: No Acute Coronary Syndrome Inclusion Criteria At DC or during hospital stay patient has or had the following: ACS DIAGNOSIS No Discharge Core Measures Meds if any: Prescribed or Continued at Discharge Meds if any: NOT Prescribed or Continued at Discharge Congestive Heart Failure Inclusion Criteria At DC or during hospital stay patient has or had the following: CHF DIAGNOSIS No Discharge Core Measures Meds if any: Prescribed or Continued at Discharge Meds if any: NOT Prescribed or Continued at Discharge Cerebrovascular accident Inclusion Criteria At DC or during hospital stay patient has or had the following: CVA/TIA Diagnosis No Discharge Core Measures Meds if any: Prescribed or Continued at Discharge Meds if any: NOT Prescribed or Continued at Discharge Venous thromboembolism Inclusion Criteria VTE Diagnosis No VTE Type NONE VTE Confirmed by (Test) NONE Discharge Core Measures - Per Current guidelines, there needs to be overlap - treatment for the first 5 days of Warfarin therapy. - If discharged on Warfarin prior to 5 days of - overlap therapy, the patient will need to be - assessed for post discharge needs including - *Post discharge parental anticoagulation - *Warfarin and/or parental anticoagulation education - *Follow up date to check INR post discharge At least 5 days overlap therapy as Inpatient No Meds if any: Prescribed or Continued at Discharge Note: Overlap Therapy is Warfarin and Anticoagulant Meds if any: NOT Prescribed or Continued at Discharge
--- NOTE | 2016-12-15 11:54 | RADIOLOGY REPORT ---
EXAMINATION: XR PORTABLE CHEST CLINICAL INFORMATION: Aspiration pneumonia. COMPARISON: 12/13/2016 TECHNIQUE: Portable frontal view of the chest was obtained. FINDINGS: The patient is status post median sternotomy. There is a pacemaker with leads in unchanged position projecting over the left chest. The cardiomediastinal silhouette is stably enlarged. There are low lung volumes with a patchy left basilar airspace opacity which is overall similar to the prior exam. No pneumothorax. IMPRESSION: Suspected left basilar airspace opacity appears overall similar to prior. Stable cardiomegaly.
[2016-12-15] MEDS ORDERED: ALLOPURINOL100 M1 PO (12:03)
[2016-12-15] MEDS ORDERED: METOPROLOL TART25 M1 PO (12:03)
[2016-12-15] MEDS ORDERED: LIPITOR40 M1 PO (12:03)
[2016-12-15] MEDS ORDERED: METOPROLOL SUCC25 M1 PO (12:12)
[2016-12-15 14:00] VITALS: BP 112/64
--- NOTE | 2016-12-15 14:26 | NUR ---
1420 PATIENT DISCHARED ALERT AND ORIENTED X 3. DENIES CHEST PAIN. + PULSES. DENIES SHORTNESS OF BREATH. VITAL SIGNS STABLE. DENIES CHEST PAIN. + PULSES L SIDED HEMIPARESIS NOTED. INCONTINENT. +2 EDEMA TO LLE SKIN C/D/I. NO DISCOMFORT/DISTRESS NOTED PATIENT DISCHARGED IN GOWN. NO STREET CLOTHING AVAILABLE. VERBALIZED UNDERSTANDING OF DISCHARGE PLAN
--- NOTE | 2016-12-16 13:37 | Discharge Summary ---
Visit Information Visit Dates Admission Date: 12/13/16 Discharge Date: 12/15/16 Hospital Course Course Attending Physician: ASHLEY FLORES MD Primary Care Physician: KLEVER CHESTER,TIKI Dorsey Hospital Course: 76 year old Man with PMH of stroke with residual left hemiplegia (2010) s/p craniotomy and then cranioplasty, HTN, rheumatic mitral stenosis s/p mitral valvuloplasty (1989) then bioprosthetic valve replacement and 1-vessel bypass ( 2004), Afib s/p AV braydon ablation and PPM (1993), systolic CHF now with biventricular AICD (2008). Presented to ED with chief complain of productive cough and shortness of breath. On admission: Vital signs temperature 95.7, pulse 70, blood pressure 169/84, respiratory rate 16 saturating 91% on 2 L oxygen, saturating 89% on room air Labs WBC 17.2, H&H 14.2/44.2, platelet 113, sodium 137, potassium 4.3, BUN/ creatinine 21/1.2, glucose 129, INR 3.05 Chest x-ray IMPRESSION: Suspect patchy left basilar opacity; this may be better assessed with PA and lateral radiographs. Enlarged cardiac silhouette. He was admitted on general medicine floor for acute hypoxic respiratory failure secondary to community-acquired pneumonia and possible aspiration pneumonia. He was kept nothing by mouth initially. He was started on IV ceftriaxone and azithromycin. Speech therapist was consulted and she did bedside swallow evaluation that he feels. He was scheduled for modified barium swallow same day. He also failed Modified barium swallow and repeated bed side swallow evaluation next day. XRY-MODIFIED BARIUM SWALLOW 12/13/16 FINDINGS: With puree consistency, the oral phase of swallowing is normal. There is, however, significant pooling of contrast seen within the vallecula, which lead to delayed silent penetration of contrast. No significant pooling of contrast is noted in the piriform sinuses. Patient was persistently nothing by mouth. Family discussion about goals of care was done. Speech therapist Bernadine spoke with patient and his earlier after failed swallow eval and MBS and told her about risk of aspiration. actually fed him applesauce while patient was nothing by mouth. co founder and president and Attending, Dr. Flores also discussed with the but she was in denial and not much convinced because she was thinking that patient had been eating perfectly fine at home. Later on she admitted that he might have some difficulty with thin liquids and chokes some time. She was given options for NG tube and PEG tube but patient and his both refused. Both completely understood the risks of starting diet and okay with that. They were told that continous aspiration can lead to recurrent pneumonia, multiple hospitalization and eventual . They understand the risks and wanted us to start the diet. wanted to see him comfortable. Options of comfort care and hospice were also discussed with her but she was not ready for this at that point. He was started on chopped honey thick diet. Antibiotics were later switched to by mouth Augmentin. Follow-up chest x-ray was done per my request that showed suspected left basilar airspace opacity appears overall similar to prior and stable cardiomegaly. He was discharged home on Augmentin. Rest of home medications were continued. Allergies: Coded Allergies: NO KNOWN ALLERGIES (06/28/14) NKDA PER ANTIBIOTIC ORDER SHEET - SJS Disposition Summary Disposition Principal Diagnosis: Acute hypoxic respiratory failure secondary to aspiration pneumonia. Additional Diagnosis: Failed bedside swallow evaluation and MBS Discharge Disposition: home health services Discharge Instructions General Discharge Information Code Status: Do Not Resucitate/Intubat Patient's Diet: chopped honey thick Patient's Activity: Wheelchair-bound Follow-Up Instructions/Appts: 1. Please follow up with her primary care provider after discharge Medications at Discharge Discharge Medications: Continue taking these medications: Melatonin (Melatonin) 5 MG TABLET 1 Tablet ORAL Every night Comments: Last Taken: 12/14/16 Time: 9:43PM Albuterol Sulfate (Albuterol Sulfate) 2.5 MG/3 ML (0.083 %) VIAL.NEB 1 Vial Inhale Solution EVERY 4 HOURS NEEDED as needed for SHORTNESS OF BREATH Comments: Last Taken: 12/15/16 Time: 8:01AM Lisinopril (Lisinopril) 2.5 MG TABLET 1 Tablet ORAL DAILY Qty = 180 Comments: Last Taken: 12/14/16 Time: 6:41PM Warfarin Sodium (Warfarin Sodium) 4 MG TABLET 1 Tablet ORAL DAILY Comments: Last Taken: 12/14/16 Time: 6:27AM Docusate Sodium (Colace) 100 MG CAPSULE 1 Capsule ORAL TWICE DAILY Comments: NOT GIVEN IN HOSPITAL Tramadol HCl (Tramadol HCl) 50 MG TABLET 1 Tablet ORAL EVERY SIX HOURS NEEDED as needed for PAIN SCALE 7-10 ( SEVERE) Qty = 60 Comments: Last Taken: 12/13/16 Time: 6:00AM Allopurinol (Allopurinol) 100 MG TABLET 2 Tablet ORAL DAILY Comments: Last Taken: 12/15/16 Time: 9:24AM Atorvastatin Calcium (Lipitor) 40 MG TABLET 1 Tablet ORAL DAILY Comments: Last Taken: 12/13/16 Time: 5:00PM Metoprolol Succinate (Metoprolol Succinate) 25 MG TAB 1 Tablet ORAL DAILY Qty = 60 Comments: Last Taken: 12/15/16 Time: 9:25AM Start taking the following new medications: Amoxicillin/Clavulanate Potass (Amox-Clav 875-125 MG Tablet) 875 MG-125 MG TABLET 1 Tablet ORAL EVERY 12 HOURS Qty = 6 No Refills Instructions: START TAKING TOMORROW Copies To: KLEVER CHESTER,TIKI Dorsey
== END 2016-12-15 14:20 | disposition home health service (06) | DRG 177 ==
LOC: ERH 02:19 → 2NB 04:26 → ERHI 04:26 → ENRESERV 04:46 → 2NB 05:54 → ENPENDDIS 12-15 12:35 → 2NB 12-15 14:20
PROVIDERS: Emergency Medicine; Internal Medicine; ADMIT Student in an Organized Health Care Education/Training Program
DX: J69.0 Pneumonitis due to inhalation of food and vomit (principal); J96.01 Acute respiratory failure with hypoxia; I69.354 Hemiplegia and hemiparesis following cerebral infarction affecting left non-dominant side; I50.22 Chronic systolic (congestive) heart failure; I11.0 Hypertensive heart disease with heart failure; I05.0 Rheumatic mitral stenosis; D69.6 Thrombocytopenia, unspecified; Z95.810 Presence of automatic (implantable) cardiac defibrillator; I48.91 Unspecified atrial fibrillation; Z79.01 Long term (current) use of anticoagulants; Z95.0 Presence of cardiac pacemaker; Z95.2 Presence of prosthetic heart valve; Z95.1 Presence of aortocoronary bypass graft
CPT/HCPCS: 2NBSP; 36415; 74230; 82436; 87040; 87070; 87449; 87450; 93005; 93010; 96374; J0456; J0696; J7040; J7042